=== PATIENT | female | born 1985 | race American Indian/Alaskan Native ===

== ENCOUNTER 2018-11-02 15:03 | Emergency (ER) | payer MEDICAID ==
--- NOTE | 2018-11-02 15:37 | Emergency Department Report ---
Blank Doc - Documentation Documentation: This is a 33-year-old female that presents with burning chest pain with shortn ess of breathe. Stated has pain that radiates to right side chest and back. This initial assessment/diagnostic orders/clinical plan/treatment(s) is/are subject to change based on patient's health status, clinical progression and re- assessment by fellow clinical providers in the ED. Further treatment and workup at subsequent clinical providers discretion. Patient/guardians urged not to elope from the ED as their condition may be serious if not clinically assessed and managed. Initial orders include: 1- Patient sent to [facility] for further evaluation and treatment 2- Labs 3- EKG 4- CXR
[2018-11-02 16:40] LABS: Basophils % (Auto) 0.5 % (0.0-1.8); Eosinophils # (Auto) 0.1 K/mm3 (0.0-0.4); Hematocrit 39.4 % (30.3-42.9); Hemoglobin 13.6 gm/dl (10.1-14.3); Lymphocytes # (Auto) 2.5 K/mm3 (1.2-5.4); Lymphocytes % (Auto) 41.8 % (13.4-35.0); Mean Corpuscular HGB Conc 34 % (30-34); Mean Corpuscular Volume 93 fl (79-97); Monocytes # (Auto) 0.3 K/mm3 (0.0-0.8); Monocytes % (Auto) 4.2 % (0.0-7.3); Platelet Count 184 K/mm3 (140-440); Red Blood Count 4.24 M/mm3 (3.65-5.03); Red Cell Distribution Width 12.4 % (13.2-15.2)
[2018-11-02 16:57] LABS: INR 0.88 (0.87-1.13); Partial Thromboplastin Time 29.1 Sec. (24.2-36.6)
[2018-11-02 17:07] LABS: Alanine Aminotransferase 10 units/L (7-56); Albumin 4.8 g/dL (3.9-5); BUN/Creatinine Ratio 20; Blood Urea Nitrogen 12 mg/dL (7-17); Calcium 9.5 mg/dL (8.4-10.2); Hemolysis Index 3
--- NOTE | 2018-11-02 18:23 | XRay Report ---
PROCEDURE: XR CHEST ROUTINE 2V TECHNIQUE: PA and lateral HISTORY: Chest Pain COMPARISONS: None FINDINGS: Trachea midline. Heart size normal. No pneumothorax. No sizable effusion. No acute airspace disease. No acute bony abnormality. IMPRESSION: No active pulmonary disease.. This document is electronically signed by Kristian Saunders MD., November 02 2018 06:20:52 PM ET
[2018-11-02] MEDS ORDERED: IBUPROFEN PO ONE (19:29)
--- NOTE | 2018-11-02 19:48 | Emergency Department Report ---
ED Chest Pain HPI - General Chief Complaint: Chest Pain Stated Complaint: CHEST PAIN/ARM PAIN/SOB Time Seen by Provider: 11/02/18 15:36 Source: patient Mode of arrival: Ambulatory Limitations: No Limitations - History of Present Illness Initial Comments: This is a 33-year-old female that presents with burning chest pain with shortness of breathe. Stated has pain that radiates to right side chest and back. pt smoke THC , hx of bronchitis notes symptoms are exacerbated with smoking symptoms are relieved by rest. there is no sob no cp at this time MD Complaint: chest pain Onset/Timin -: month(s), unknown (over 1 yr ) Onset: associated with drug use, other (smokign /vaping ) Pain Location: left chest Pain Radiation: back Severity: moderate Severity scale (0 -10): 3 Quality: aching, sharp Consistency: intermittent Improves With: rest Worsens With: palpation, movement, other (smoking ) Other Symptoms: cough Treatments Prior to Arrival: none Aspirin use within the Past 7 Days: (0) No - Related Data On Oral Contraceptives: No Previous Rx's Medication Instructions Recorded Last Taken Type Ibuprofen 800 mg PO TID PRN #30 tablet 11/02/18 Unknown Rx Allergies Allergy/AdvReac Type Severity Reaction Status Date / Time No Known Allergies Allergy Unverified 11/02/18 15:38 Heart Score - HEART Score History: Slightly suspicious EKG: Normal Age: < 45 Risk factors: No known risk factors Troponin: < normal limit HEART Score: 0 ED Review of Systems ROS: Stated complaint: CHEST PAIN/ARM PAIN/SOB Other details as noted in HPI Constitutional: denies: chills, fever Eyes: denies: eye pain, eye discharge, vision change ENT: denies: ear pain, throat pain Respiratory: cough. denies: shortness of breath, wheezing Cardiovascular: denies: chest pain, palpitations Endocrine: no symptoms reported Gastrointestinal: denies: abdominal pain, nausea, vomiting, diarrhea Genitourinary: denies: urgency, dysuria, discharge Musculoskeletal: denies: back pain, joint swelling, arthralgia Skin: denies: rash, lesions Neurological: denies: headache, weakness, paresthesias Psychiatric: denies: anxiety, depression Hematological/Lymphatic: denies: easy bleeding, easy bruising ED Past Medical Hx - Past Medical History Previous Medical History?: No Additional medical history: sciatica - Surgical History Past Surgical History?: No - Social History Smoking Status: Current Every Day Smoker Substance Use Type: None - Medications Home Medications: Home Medications Medication Instructions Recorded Confirmed Last Taken Type Ibuprofen 800 mg PO TID PRN #30 tablet 11/02/18 Unknown Rx ED Physical Exam - General Limitations: No Limitations General appearance: alert, in no apparent distress - Head Head exam: Present: atraumatic, normocephalic, normal inspection - Eye Eye exam: Present: normal appearance, PERRL, EOMI Pupils: Present: normal accommodation - ENT ENT exam: Present: normal orophraynx, mucous membranes moist, TM's normal bilaterally - Neck Neck exam: Present: normal inspection, full ROM. Absent: tenderness, lymphadenopathy, thyromegaly - Respiratory Respiratory exam: Present: normal lung sounds bilaterally, chest wall tenderness (left lateral chest wall tenderness ). Absent: respiratory distress, wheezes, stridor, accessory muscle use, prolonged expiratory - Cardiovascular Cardiovascular Exam: Present: regular rate, normal rhythm, normal heart sounds. Absent: systolic murmur, diastolic murmur, rubs, gallop - GI/Abdominal GI/Abdominal exam: Present: soft, normal bowel sounds. Absent: distended, tenderness, guarding, rebound, rigid, bruit, hernia - Rectal Rectal exam: Present: deferred - Extremities Exam Extremities exam: Present: normal inspection, full ROM, normal capillary refill. Absent: tenderness, pedal edema, joint swelling, calf tenderness - Back Exam Back exam: Present: normal inspection, full ROM, muscle spasm. Absent: tenderness, CVA tenderness (R), CVA tenderness (L), paraspinal tenderness, vertebral tenderness, rash noted - Neurological Exam Neurological exam: Present: alert, oriented X3, CN II-XII intact, normal gait, reflexes normal - Psychiatric Psychiatric exam: Present: normal affect, normal mood - Skin Skin exam: Present: warm, dry, intact, normal color. Absent: rash ED Course Vital Signs 11/02/18 15:36 Temperature 98.7 F Pulse Rate 101 H Respiratory 16 Rate Blood Pressure 133/67 O2 Sat by Pulse 98 Oximetry VON score - Von Score Age > 65: (0) No Aspirin use within the Past 7 Days: (0) No 3 or more CAD Risk Factors: (0) No 2 or more Angina events in past 24 hrs: (0) No Known CAD with more than 50% Stenosis: (0) No Elevated Cardiac Markers: (0) No ST Deviation Greater than 0.5mm: (0) No VON Score: 0 ED Medical Decision Making - Lab Data Result diagrams: 11/02/18 16:18 11/02/18 16:18 Critical care attestation.: If time is entered above; I have spent that time in minutes in the direct care of this critically ill patient, excluding procedure time. ED Disposition Clinical Impression: Chest pain Qualifiers: Chest pain type: unspecified Qualified Code(s): R07.9 - Chest pain, unspecified Disposition: DC- TO HOME OR SELFCARE Is pt being admited?: No Does the pt Need Aspirin: No Condition: Stable Instructions: Chest Pain (ED), Costochondritis (ED), How to Stop Smoking (ED) Prescriptions: Ibuprofen 800 mg PO TID PRN #30 tablet PRN Reason: pain Referrals: [facility] MD PHYLICIA [Primary Care Provider] - 3-5 Days CEE COTTER MD [Referring] - 3-5 Days Forms: Work/School Release Form(ED) Time of Disposition: 19:52
[2018-11-02 20:09] VITALS: BP 122/75
== END 2018-11-02 20:05 | disposition home or self-care (01) ==
LOC: ED 15:03
DX: R07.89 Other chest pain (principal); F17.200 Nicotine dependence, unspecified, uncomplicated
CPT/HCPCS: 36415; 71046; 80053; 84484; 84703; 85025; 85379; 85610; 85730; 93005; 93010; 99284

== ENCOUNTER 2018-11-26 14:11 | Outpatient (CLI) | payer MEDICAID ==
--- NOTE | 2018-11-26 15:13 | XRay Report ---
AP AND LATERAL LUMBOSACRAL SPINE: History: Back pain. The vertebral bodies are well mineralized and normal in alignment and vertebral height with well preserved interspace distances. The visualized portions of the posterior elements are normal. IMPRESSION: Normal study.
--- NOTE | 2018-11-26 15:13 | XRay Report ---
AP AND LATERAL CERVICAL SPINE: History: Neck pain. The vertebral bodies are well mineralized and normal in alignment and vertebral height with well preserved interspace distances. The visualized portions of the posterior elements are normal. IMPRESSION: Normal study.
--- NOTE | 2018-11-26 15:14 | XRay Report ---
RIGHT HIP, 2 views: History: Right hip pain. The bony architecture is intact without evidence of fracture or dislocation. No significant soft tissue abnormality is seen. IMPRESSION: Normal right hip.
--- NOTE | 2018-11-26 15:15 | XRay Report ---
SACRUM AND COCCYX, 2 views: History: Pain. There is subtle sclerosis surrounding the SI joints bilaterally. There is no evidence for bony erosions or fusion. The sacrum and coccyx are intact. IMPRESSION: Subtle sclerotic changes surrounding the SI joints. This probably represents early osteoarthritic changes. Spondylo-arthropathy could also be considered.
== END 2018-11-26 14:12 | disposition home or self-care (01) ==
LOC: XRAY 14:11
PROVIDERS: ATTEND Internal Medicine
DX: M25.551 Pain in right hip (principal); M53.3 Sacrococcygeal disorders, not elsewhere classified; M54.9 Dorsalgia, unspecified
CPT/HCPCS: 72040; 72100; 72220

== ENCOUNTER 2019-04-14 10:31 | Day surgery (SDC) | payer MEDICAID ==
[~2019-04-14 10:31] MED LIST: NACL 0.9% 1000 ML 1,000 ML IV SCH
--- NOTE | 2019-04-14 12:04 | Anesthesia Consultation ---
Anesthesia Consult and Med Hx Date of service: 04/14/19 - Airway Anesthetic Teeth Evaluation: Good ROM Head & Neck: Adequate Mental/Hyoid Distance: Adequate Mallampati Class: Class II Intubation Access Assessment: Good - Pulmonary Exam CTA: Yes - Cardiac Exam Cardiac Exam: RRR - Pre-Operative Health Status ASA Pre-Surgery Classification: ASA1 Proposed Anesthetic Plan: TIVA
--- NOTE | 2019-04-14 12:05 | Anesthesia Day of Surgery ---
Anesthesia Day of Surgery - Day of Surgery Patient Examined: Yes Patient H&P Reviewed: Yes Patient is NPO: Yes
[2019-04-14] MEDS ORDERED: XYLOCAINE 1% 20 mL ONE (12:10)
[2019-04-14] MEDS ORDERED: DIPRIVAN 10 MG/ML IV ONE ×2 (12:10→12:15)
[2019-04-14] MEDS ORDERED: VERSED ONE (12:10)
--- NOTE | 2019-04-14 12:35 | Procedure Note ---
Date of procedure: 04/14/19 Pre-op diagnosis: Odynophagia Post-op diagnosis: other (Mild,Natali Esophagitis/Moderate, distal erosive Esophagitis/Gastritis/R/O Celiac Disease) Procedure: EGD with Biopsy Anesthesia: MAC Surgeon: AFTAB HAN Estimated blood loss: minimal Pathology: list Specimen disposition: to lab Condition: stable Disposition: same day (Treat with Fluconazole and PPI. Avoid aspirin and NSAID for 5 days and resume home medication and follow up in 1 to 2 weeks ([phone]).)
--- NOTE | 2019-04-14 12:56 | Operative Report ---
PROCEDURE: Esophagogastroduodenoscopy with biopsy. INDICATIONS: A 33-year-old -[place] female in otherwise good health, who does have a family history of mother having lymphoma, which had metastasized. She had presented to the office with odynophagia, but on further questioning, she denied any symptoms of dysphagia. EGD was done for further assessment for odynophagia DESCRIPTION OF PROCEDURE: Procedure was done after getting informed consent with MAC anesthesia. Instrument was passed through the hypopharynx into the esophagus, which showed a few whitish plaques suggestive of mild Natali esophagitis. There was a distal erosive esophagitis present. Biopsy was done from the distal esophagus to rule out erosive esophagitis and from the midesophagus to rule out for eosinophilic esophagitis. The stomach showed gastritis. There were no ulcers noted in the straight or the retroverted view. The pylorus was patent. The duodenum in the first and second portion appeared normal. Biopsy was done from the second part of the duodenum to rule out for celiac disease and additional biopsy was done from the gastric antrum, gastric body and angular incisura to rule out for H. pylori and atrophic gastritis. There was minimal bleeding from the biopsy sites and no complications associated with the procedure. ASSESSMENT: Odynophagia, possibly secondary to mild Natali esophagitis, distal erosive esophagitis, rule out eosinophilic esophagitis, gastritis. No peptic ulcer disease noted. Patent pylorus, rule out celiac disease. PLAN: To treat the patient with fluconazole and PPI, have the patient avoid aspirin and aspirin-related products for the next few days and to follow up in the office in 1-2 weeks' time. The procedure was done in the GI lab with assistance of the GI lab team and anesthesia, the GI lab team included OSCAR, Candace Denson, as well as Kim fish. JOB# [id number] JADA/ROGERIO
[2019-04-14 17:07] VITALS: BP 121/80
== END 2019-04-14 10:32 | disposition home or self-care (01) ==
LOC: GIO 10:31
DX: K31.89 Other diseases of stomach and duodenum (principal); K22.8 Other specified diseases of esophagus; B37.81 Candidal esophagitis; K30 Functional dyspepsia; K29.70 Gastritis, unspecified, without bleeding; F17.210 Nicotine dependence, cigarettes, uncomplicated; Z79.899 Other long term (current) drug therapy
CPT/HCPCS: 43239; 81025; 88305; 88312; 88342; J2250; J2704; J7030